=== PATIENT | female | born 1945 | race Caucasian/White ===

== ENCOUNTER 2017-09-02 05:15 | Day surgery (SDC) | payer OTHER ==
[~2017-09-02 05:15] MED LIST: ADVIL200 MG PO; CENTRUM WOMEN1 EACH PO; NON-ASPIRIN PA500 M1 PO; TURMERIC 500 M1 EACH PO
[2017-09-02 06:09] VITALS: BP 186/96
[2017-09-02] MEDS ORDERED: HYDROCODON-ACE1 EAC7 PO (13:13)
[2017-09-02 15:10] VITALS: BP 152/99
[2017-09-02 17:57] VITALS: BP 124/66
[2017-09-02 18:00] VITALS: BP 164/85
== END 2017-09-02 18:05 | disposition home or self-care (01) ==
LOC: SDC 05:15 → NUC 07:00 → SDC 07:00
PROC: 0HBT0ZZ Excision of Right Breast, Open Approach (ICD-10-PCS; principal; 2017-09-02)
PROC: 07B50ZX Excision of Right Axillary Lymphatic, Open Approach, Diagnostic (ICD-10-PCS; principal; 2017-09-02)
DX: C50.411 Malignant neoplasm of upper-outer quadrant of right female breast (principal); Z17.0 Estrogen receptor positive status [ER+]; Z87.891 Personal history of nicotine dependence
CPT/HCPCS: 78195; 78999; 88305; 88307; A9541; J0131; J0330; J0690; J1100; J1170; J2250; J2405; J3010; S0020

== ENCOUNTER 2017-10-08 07:05 | Day surgery (SDC) | payer OTHER ==
[~2017-10-08] VITALS: Ht 152.4 cm; Wt 95.7 kg
[~2017-10-08 07:05] MED LIST changes: +HYDROCODON-ACE1 EAC7 PO
[2017-10-08 08:26] VITALS: BP 195/95
[2017-10-08 13:54] VITALS: BP 134/63
[2017-10-08 20:04] VITALS: BP 137/67
[2017-10-08 23:00] VITALS: BP 136/69
[2017-10-09 04:02] VITALS: BP 140/64
[2017-10-09 06:18] LABS: HEMATOCRIT 37.1 % (36.0-46.0); HEMOGLOBIN 11.6 G/DL (11.9-15.5); MCH 26.4 PG (29.0-34.0); MCHC 31.3 G/DL (30.0-36.0); MCV 84.5 FL (83-99); PLATELET COUNT 210 K/uL (156-360); RBC DIS.WIDTH-CV 17.7 % (11.8-14.6); RED BLOOD COUNT 4.39 M/uL (3.80-5.20); WHITE BLOOD COUNT 11.6 K/uL (4.1-10.2)
[2017-10-09 07:30] VITALS: BP 166/78
[2017-10-09] MEDS ORDERED: HYDROCODON-ACE1 EAC7 PO (12:06)
[2017-10-09 12:24] VITALS: BP 115/61
== END 2017-10-09 14:23 | disposition home or self-care (01) ==
LOC: SDC 07:05 → 2SOUTH 12:04 → 2EASTP 12:04 → ENRESERV 12:22 → 2EASTP 13:45 → SDC 15:38 → 2EASTP 10-09 14:23
PROVIDERS: Surgery
PROC: 0HTT0ZZ Resection of Right Breast, Open Approach (ICD-10-PCS; principal; 2017-10-08)
DX: C50.411 Malignant neoplasm of upper-outer quadrant of right female breast (principal); Z17.0 Estrogen receptor positive status [ER+]; D18.01 Hemangioma of skin and subcutaneous tissue; I45.81 Long QT syndrome; Z87.891 Personal history of nicotine dependence; Z80.49 Family history of malignant neoplasm of other genital organs
CPT/HCPCS: 85027; 88307; G0378; J0690; J1100; J1170; J2250; J2405; J2710; J3010; J3480; J7643; S0020